=== PATIENT | female | born 2000 | race Caucasian/White ===

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

== ENCOUNTER 2021-07-28 10:25 | Emergency (ER) | payer MEDICAID ==
[2021-07-28 11:15] VITALS: BP 106/55; PULSE 96
--- NOTE | 2021-07-28 12:36 | EDM.PDOC ---
ED HPI GENERAL MEDICAL PROBLEM - General Chief Complaint: General Stated Complaint: CHEST PAIN Time Seen by Provider: 07/28/21 11:44 Source of Information: Reports: Patient, RN Notes Reviewed - History of Present Illness INITIAL COMMENTS - FREE TEXT/NARRATIVE: 20 yr old female had a near syncope episode this morning a couple of hrs ago. Became very lightheaded, felt like she was about to pass out. Feels better now. No chest pain or difficulty breathing. No vomiting or diarrhea. Middle Chest Pain Score (Numeric/FACES): 8 - Related Data Allergies Allergy/AdvReac Type Severity Reaction Status Date / Time tobacco Allergy Severe Difficulty Uncoded 07/28/21 11:15 Breathing Home Meds: Home Meds . 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 Musculoskeletal History: Reports: Other (See Below) Other Musculoskeletal History: coccyx injury Neurological History: Reports: Concussion Psychiatric History: Reports: ADHD, Depression Endocrine/Metabolic History: Reports: Obesity/BMI 30+ Hematologic History: Reports: None Immunologic History: Reports: None Oncologic (Cancer) History: Reports: None Dermatologic History: Reports: None - Infectious Disease History Infectious Disease History: Reports: None - Past Surgical History HEENT Surgical History: Reports: Adenoidectomy, Myringotomy w Tube(s), Tonsillectomy Social & Family History - Family History Family Medical History: No Pertinent Family History - Tobacco Use Tobacco Use Status *Q: Never Tobacco User - Caffeine Use Caffeine Use: Reports: Energy Drinks, Soda - Recreational Drug Use Recreational Drug Use: No - Living Situation & Occupation Living situation: Reports: with Family Occupation: Student (10th grade) ED ROS GENERAL - Review of Systems Review Of Systems: See Below Constitutional: Denies: Fever, Chills, Diaphoresis HEENT: Reports: No Symptoms Respiratory: Denies: Shortness of Breath Cardiovascular: Denies: Chest Pain GI/Abdominal: Denies: Abdominal Pain, Diarrhea, Nausea, Vomiting Musculoskeletal: Reports: No Symptoms Skin: Reports: Other (abrasion R forearm from fall last evening) Neurological: Reports: No Symptoms ED EXAM, GENERAL - Physical Exam Exam: See Below General Appearance: Alert, No Apparent Distress Throat/Mouth: Other (mouth mildly dry) Neck: Supple Respiratory/Chest: No Respiratory Distress, Lungs Clear, Normal Breath Sounds Cardiovascular: Regular Rate, Rhythm GI/Abdominal: Soft, Non-Tender. No: Guarding Back Exam: No: CVA Tenderness (L), CVA Tenderness (R) Neurological: Alert, Oriented, No Motor/Sensory Deficits Skin Exam: Warm, Dry, Normal Color Course - Vital Signs Last Recorded V/S: Last Vital Signs Temp 97.9 F 07/28/21 11:12 Pulse 96 07/28/21 11:12 Resp 18 07/28/21 11:12 BP 106/55 L 07/28/21 11:12 Pulse Ox 100 07/28/21 11:12 - Orders/Labs/Meds Labs: Laboratory Tests 07/28/21 07/28/21 Range/Units 12:22 12:22 WBC 6.13 (3.98-10.04) K/mm3 RBC 4.16 (3.98-5.22) M/mm3 Hgb 12.4 D (11.2-15.7) gm/dl Hct 36.7 (34.1-44.9) % MCV 88.2 (79.4-94.8) fl MCH 29.8 (25.6-32.2) pg MCHC 33.8 (32.2-35.5) g/dl RDW Std Deviation 38.5 (36.4-46.3) fL Plt Count 320 D (182-369) K/mm3 MPV 10.1 (9.4-12.3) fl Neut % (Auto) 87.2 H (34.0-71.1) % Lymph % (Auto) 3.1 L (19.3-51.7) % [place] % (Auto) 9.3 (4.7-12.5) % Eos % (Auto) 0.2 L (0.7-5.8) Baso % (Auto) 0.0 L (0.1-1.2) % Neut # (Auto) 5.35 (1.56-6.13) K/mm3 Lymph # (Auto) 0.19 L (1.18-3.74) K/mm3 [place] # (Auto) 0.57 H (0.24-0.36) K/mm3 Eos # (Auto) 0.01 L (0.04-0.36) K/mm3 Baso # (Auto) 0.00 L (0.01-0.08) K/mm3 Sodium 140 (136-145) mEq/L Potassium 3.4 L (3.5-5.1) mEq/L Chloride 105 (98-107) mEq/L Carbon Dioxide 20 L (21-32) mEq/L Anion Gap 18.4 H (5-15) BUN 5 L (7-18) mg/dL Creatinine 0.6 (0.55-1.02) mg/dL Est Cr Clr Drug Dosing 113.80 mL/min Estimated GFR (MDRD) > 60 (>60) mL/min BUN/Creatinine Ratio 8.3 L (14-18) Glucose 98 (70-99) mg/dL Calcium 8.7 (8.5-10.1) mg/dL Total Bilirubin 0.4 (0.2-1.0) mg/dL AST 16 (15-37) U/L ALT 21 (14-59) U/L Alkaline Phosphatase 52 (46-116) U/L Total Protein 7.3 (6.4-8.2) g/dl Albumin 4.0 (3.4-5.0) g/dl Globulin 3.3 gm/dL Albumin/Globulin Ratio 1.2 (1-2) - Re-Assessments/Exams Free Text/Narrative Re-Assessment/Exam: 07/28/21 14:01 Labs do show some dehydration with increased anion gap, mildly low C02. She has been drinking some water while awaiting lab work, no vomiting or diarrhea so she should be able to do oral rehydration. Departure - Departure Time of Disposition: 13:35 Disposition: Home, Self-Care 01 Condition: Fair Clinical Impression: Near syncope, Dehydration - Discharge Information Referrals: Desiree Garcia MD [Primary Care Provider] - Forms: ED Department Discharge Additional Instructions: Your labs show that you were somewhat dehydrated this morning which puts you at higher risk of dizziness and passing out. Rest. Avoid heat exposure today and tomorrow. Alternate powerade and water today and tomorrow. Follow up clinic as needed. Return to ED as needed if symptoms worsening in any way. Sepsis Event Note (ED) - Evaluation Sepsis Screening Result: No Definite Risk - Focused Exam Vital Signs: Vital Signs Temp Pulse Resp BP Pulse Ox 07/28/21 11:12 97.9 F 96 18 106/55 L 100
== END 2021-07-28 14:20 | disposition home or self-care (01) ==
LOC: JD.ED 10:25
DX: E86.0 Dehydration (principal); E66.9 Obesity, unspecified; Z68.32 Body mass index [BMI] 32.0-32.9, adult; Z91.048 Other nonmedicinal substance allergy status
CPT/HCPCS: 36415; 80053; 85025; 99284

== ENCOUNTER 2022-02-08 16:44 | Emergency (ER) | payer SELFPAY ==
[2022-02-08 17:12] VITALS: BP 104/85; PULSE 91
== END 2022-02-08 17:48 | disposition home or self-care (01) ==
LOC: JD.ED 16:44
DX: Z48.00 Encounter for change or removal of nonsurgical wound dressing (principal); E66.9 Obesity, unspecified; Z91.048 Other nonmedicinal substance allergy status; Z68.31 Body mass index [BMI] 31.0-31.9, adult
CPT/HCPCS: 99282

== ENCOUNTER 2022-04-12 22:43 | Emergency (ER) | payer MEDICAID ==
[2022-04-12 23:34] VITALS: BP 112/69; PULSE 89
[2022-04-12] MEDS ORDERED: Ondansetron 4 MG/2 ML SDV IVPUSH ONE (23:54)
[2022-04-12] MEDS ORDERED: Sodium Chloride 0.9% 1,000 ML IV ONE (23:54)
== END 2022-04-13 01:56 | disposition home or self-care (01) ==
LOC: JD.ED 22:43
DX: R11.2 Nausea with vomiting, unspecified (principal); Z91.048 Other nonmedicinal substance allergy status
CPT/HCPCS: 36415; 80053; 83735; 85025; 96361; 96374; 99284; J2405; J7030; 99283

== ENCOUNTER 2022-09-11 19:39 | Emergency (ER) | payer MEDICAID ==
[2022-09-11] MEDS ORDERED: Lactated Ringers 1,000 ML IV ONE (20:33)
[2022-09-11] MEDS ORDERED: Ondansetron 4 MG/2 ML SDV IVPUSH ONE (20:33)
[2022-09-11 23:33] VITALS: BP 121/71; PULSE 103
== END 2022-09-11 23:10 | disposition home or self-care (01) ==
LOC: JD.ED 19:39
DX: R11.2 Nausea with vomiting, unspecified (principal); Z91.018 Allergy to other foods
CPT/HCPCS: 36415; 80053; 83690; 84703; 85025; 96361; 96374; 99284; J2405; J7120

== ENCOUNTER 2023-09-24 00:57 | Emergency (ER) | payer MEDICAID ==
[2023-09-24] MEDS ORDERED: Sodium Chloride 0.9% 10 ML Syringe FLUSH PRN (01:23)
[2023-09-24] MEDS ORDERED: Ondansetron 4 MG/2 ML SDV IVPUSH ONE (01:23)
[2023-09-24] MEDS ORDERED: Sodium Chloride 0.9% 1,000 ML IV STA (01:23)
[2023-09-24 01:45] LABS: BASOPHILS PERCENT AUTO 0.3 % (0.0-1.0); EOSINOPHILS ABSOLUTE AUTO 0.1 K/mm3 (0.0-0.4); EOSINOPHILS PERCENT AUTO 0.8 % (0.0-6.0); HEMATOCRIT 43.5 % (37.0-47.0); HEMOGLOBIN 14.4 gm/dl (12.0-16.0); IMMATURE GRAN ABSOLUTE AUTO 0.04 K/mm3 (0.00-0.05); IMMATURE GRAN PERCENT AUTO 0.4 % (0.0-0.4); LYMPHOCYTES ABSOLUTE AUTO 2.5 K/mm3 (1.0-4.8); LYMPHOCYTES PERCENT AUTO 26.3 % (24.0-44.0); MEAN CORPUSCULAR HEMOGLOBIN 29.4 pg (28.0-32.0); MEAN CORPUSCULAR HGB CONC 33.1 g/dl (32.0-36.0); MEAN CORPUSCULAR VOLUME 88.8 fl (83.0-99.0); MEAN PLATELET VOLUME 9.2 fl (9.4-12.3); MONOCYTES ABSOLUTE AUTO 0.8 K/mm3 (0.0-0.8); MONOCYTES PERCENT AUTO 8.2 % (0.0-8.0); NEUTROPHILS ABSOLUTE AUTO 6.1 K/mm3 (1.8-7.7); PLATELET COUNT,PLT 399 K/mm3 (150-400); WHITE BLOOD CELL COUNT,WBC 9.54 K/mm3 (3.9-11.3)
[2023-09-24 01:47] LABS: APPEARANCE,URINE SLT CLOUDY (Clear); BILIRUBIN,URINE NEGATIVE (Negative); COLOR,URINE YELLOW (Yellow); GLUCOSE,URINE NEGATIVE (Negative); KETONES,URINE NEGATIVE (Negative); LEUKOCYTE ESTERASE,URINE NEGATIVE (Negative); NITRITE,URINE NEGATIVE (Negative); OCCULT BLOOD,URINE TRACE-LYSED (Negative); PH,URINE 5.5 (5.0-8.0); PROTEIN,URINE NEGATIVE (Negative); UROBILINOGEN,URINE 0.2 (0.2-1.0)
[2023-09-24 01:57] LABS: BACTERIA,URINE FEW /hpf (FEW); CALCIUM OXALATE CRYSTALS,URINE MANY; MUCUS,URINE MODERATE /hpf (FEW); RBC,URINE 0-5 /hpf (0-5); SQUAMOUS EPITHELIAL CELLS,UR 0-5 /hpf (0-5); WBC,URINE 0-5 /hpf (0-5)
[2023-09-24 02:04] LABS: ALBUMIN 4.1 g/dl (3.4-5.0); ANION GAP 14.8 (5-15); BILIRUBIN TOTAL 0.2 mg/dL (0.2-1.0); CALCIUM 9.4 mg/dL (8.5-10.1); CREATININE 0.8 mg/dL (0.55-1.02); EST CRCL DRUG DOSING (CG) 87.24 mL/min; POTASSIUM,K 3.8 mEq/L (3.5-5.1); PROTEIN TOTAL,TP 8.1 g/dl (6.4-8.2)
[2023-09-24 02:58] VITALS: BP 123/75; PULSE 80
== END 2023-09-24 02:38 | disposition home or self-care (01) ==
LOC: JD.ED 00:57
DX: A08.4 Viral intestinal infection, unspecified (principal); E66.9 Obesity, unspecified; Z68.36 Body mass index [BMI] 36.0-36.9, adult; Z86.16 Personal history of COVID-19; Z91.048 Other nonmedicinal substance allergy status
CPT/HCPCS: 36415; 80053; 81001; 83690; 84703; 85025; 96361; 96374; 99284; J2405; J3490; J7030

== ENCOUNTER 2023-10-04 03:06 | Emergency (ER) | payer MEDICAID ==
[2023-10-04 03:17] VITALS: BP 119/66; PULSE 79
[2023-10-04] MEDS ORDERED: Sodium Chloride 0.9% 10 ML Syringe FLUSH PRN (03:17)
[2023-10-04 03:32] LABS: APPEARANCE,URINE CLOUDY (Clear); BILIRUBIN,URINE NEGATIVE (Negative); COLOR,URINE YELLOW (Yellow); GLUCOSE,URINE NEGATIVE (Negative); KETONES,URINE NEGATIVE (Negative); LEUKOCYTE ESTERASE,URINE NEGATIVE (Negative); NITRITE,URINE NEGATIVE (Negative); OCCULT BLOOD,URINE 3+ (Negative); PROTEIN,URINE TRACE (Negative); UROBILINOGEN,URINE 0.2 (0.2-1.0)
[2023-10-04 03:47] LABS: BACTERIA,URINE FEW /hpf (FEW); EPITHELIAL CELLS,URINE 0-5 /hpf (0-5); MUCUS,URINE FEW /hpf (FEW); RBC,URINE 75-100 /hpf (0-5); WBC,URINE 0-5 /hpf (0-5)
[2023-10-04 03:48] LABS: BASOPHILS PERCENT AUTO 0.4 % (0.0-1.0); EOSINOPHILS ABSOLUTE AUTO 0.1 K/mm3 (0.0-0.4); HEMATOCRIT 39.6 % (37.0-47.0); HEMOGLOBIN 13.5 gm/dl (12.0-16.0); IMMATURE GRAN ABSOLUTE AUTO 0.01 K/mm3 (0.00-0.05); IMMATURE GRAN PERCENT AUTO 0.2 % (0.0-0.4); LYMPHOCYTES ABSOLUTE AUTO 1.5 K/mm3 (1.0-4.8); LYMPHOCYTES PERCENT AUTO 29.1 % (24.0-44.0); MEAN CORPUSCULAR HEMOGLOBIN 30.2 pg (28.0-32.0); MEAN CORPUSCULAR HGB CONC 34.1 g/dl (32.0-36.0); MEAN CORPUSCULAR VOLUME 88.6 fl (83.0-99.0); MEAN PLATELET VOLUME 9.1 fl (9.4-12.3); MONOCYTES ABSOLUTE AUTO 0.4 K/mm3 (0.0-0.8); MONOCYTES PERCENT AUTO 8.8 % (0.0-8.0); NEUTROPHILS PERCENT AUTO 60.5 % (41.0-71.0); PLATELET COUNT,PLT 404 K/mm3 (150-400); RED BLOOD CELL COUNT 4.47 M/mm3 (4.10-5.30); WHITE BLOOD CELL COUNT,WBC 5.01 K/mm3 (3.9-11.3)
== END 2023-10-04 04:52 | disposition home or self-care (01) ==
LOC: JD.ED 03:06
DX: N92.0 Excessive and frequent menstruation with regular cycle (principal); E66.9 Obesity, unspecified; Z86.16 Personal history of COVID-19; Z68.37 Body mass index [BMI] 37.0-37.9, adult; Z91.09 Other allergy status, other than to drugs and biological substances
CPT/HCPCS: 36415; 81001; 84702; 85025; 99284; J3490; 99282

== ENCOUNTER 2024-03-05 17:49 | Emergency (ER) | payer SELFPAY ==
[2024-03-05 19:29] LABS: APPEARANCE,URINE CLEAR (Clear); BILIRUBIN,URINE NEGATIVE (Negative); COLOR,URINE LIGHT YELLOW (Yellow); GLUCOSE,URINE NEGATIVE (Negative); KETONES,URINE NEGATIVE (Negative); LEUKOCYTE ESTERASE,URINE NEGATIVE (Negative); NITRITE,URINE NEGATIVE (Negative); OCCULT BLOOD,URINE TRACE-LYSED (Negative); PROTEIN,URINE NEGATIVE (Negative); UROBILINOGEN,URINE 0.2 (0.2-1.0)
[2024-03-05 19:50] LABS: BACTERIA,URINE FEW /hpf (FEW); MUCUS,URINE FEW /hpf (FEW); RBC,URINE 0-5 /hpf (0-5); SQUAMOUS EPITHELIAL CELLS,UR 0-5 /hpf (0-5); WBC,URINE 0-5 /hpf (0-5)
[2024-03-05 20:46] VITALS: BP 108/71; PULSE 71
[2024-03-05 20:59] LABS: C. TRACHOMATIS BY PCR NOT DETECTED; N. GONORRHOEAE BY PCR NOT DETECTED
== END 2024-03-05 20:42 | disposition home or self-care (01) ==
LOC: JD.ED 17:49
DX: N83.202 Unspecified ovarian cyst, left side (principal); N92.1 Excessive and frequent menstruation with irregular cycle; Z91.048 Other nonmedicinal substance allergy status; Z86.16 Personal history of COVID-19; Z90.49 Acquired absence of other specified parts of digestive tract
CPT/HCPCS: 0352U; 76830; 81001; 81025; 87491; 87591; 99284

== ENCOUNTER 2024-03-13 00:50 | Emergency (ER) | payer SELFPAY | END 2024-03-13 02:40 | disposition left against medical advice (07) | LOC: JD.ED 00:50 | DX: Z53.21 Procedure and treatment not carried out due to patient leaving prior to being seen by health care provider (principal) ==

== ENCOUNTER 2024-07-15 22:24 | Emergency (ER) | payer SELFPAY ==
[2024-07-15 22:37] VITALS: BP 137/89; PULSE 91
[2024-07-15] MEDS: Cefdinir 300 MG Cap PO ONE (23:14)
== END 2024-07-15 23:15 | disposition home or self-care (01) ==
LOC: JD.ED 22:24
DX: H66.002 Acute suppurative otitis media without spontaneous rupture of ear drum, left ear (principal); E66.9 Obesity, unspecified; Z68.37 Body mass index [BMI] 37.0-37.9, adult; Z90.49 Acquired absence of other specified parts of digestive tract; Z86.16 Personal history of COVID-19; Z91.048 Other nonmedicinal substance allergy status
CPT/HCPCS: 99283; A9270

== ENCOUNTER 2024-09-17 22:37 | Emergency (ER) | payer SELFPAY ==
[2024-09-17 22:43] VITALS: BP 131/78; PULSE 108
[2024-09-17] MEDS ORDERED: Sodium Chloride 0.9% 10 ML Syringe FLUSH PRN (23:34)
[2024-09-17] MEDS: Sodium Chloride 0.9% 1,000 ML IV ONE (23:44)
[2024-09-18 00:04] LABS: HEMATOCRIT 41.1 % (37.0-47.0); HEMOGLOBIN 13.9 gm/dl (12.0-16.0); MEAN CORPUSCULAR VOLUME 87.4 fl (83.0-99.0); WHITE BLOOD CELL COUNT,WBC 11.27 K/mm3 (3.9-11.3)
[2024-09-18 00:05] LABS: BASOPHILS PERCENT AUTO 0.1 % (0.0-1.0); EOSINOPHILS ABSOLUTE AUTO 0.1 K/mm3 (0.0-0.4); EOSINOPHILS PERCENT AUTO 0.4 % (0.0-6.0); IMMATURE GRAN ABSOLUTE AUTO 0.03 K/mm3 (0.00-0.05); IMMATURE GRAN PERCENT AUTO 0.3 % (0.0-0.4); LYMPHOCYTES ABSOLUTE AUTO 0.6 K/mm3 (1.0-4.8); LYMPHOCYTES PERCENT AUTO 4.9 % (24.0-44.0); MEAN CORPUSCULAR HEMOGLOBIN 29.6 pg (28.0-32.0); MEAN CORPUSCULAR HGB CONC 33.8 g/dl (32.0-36.0); MEAN PLATELET VOLUME 9.3 fl (9.4-12.3); MONOCYTES ABSOLUTE AUTO 0.4 K/mm3 (0.0-0.8); MONOCYTES PERCENT AUTO 3.3 % (0.0-8.0); NEUTROPHILS ABSOLUTE AUTO 10.3 K/mm3 (1.8-7.7); PLATELET COUNT,PLT 408 K/mm3 (150-400)
[2024-09-18 00:17] LABS: A/G RATIO 1.1 (1-2); ANION GAP 16.6 (5-15); BILIRUBIN TOTAL 0.6 mg/dL (0.2-1.0); BUN/CREATININE RATIO 14.3 (14-18); CALCIUM 9.2 mg/dL (8.5-10.1); CREATININE 0.7 mg/dL (0.55-1.02); EST CRCL DRUG DOSING (CG) 95.13 mL/min; MAGNESIUM 1.8 mg/dL (1.8-2.4); POTASSIUM,K 3.6 mEq/L (3.5-5.1); PROTEIN TOTAL,TP 7.6 g/dl (6.4-8.2)
[2024-09-18 00:31] LABS: SLIDE REVIEW ABNORMAL SMEAR
== END 2024-09-18 02:24 | disposition home or self-care (01) ==
LOC: JD.ED 22:37
DX: R11.2 Nausea with vomiting, unspecified (principal); R19.7 Diarrhea, unspecified; E66.9 Obesity, unspecified; Z68.38 Body mass index [BMI] 38.0-38.9, adult; Z79.899 Other long term (current) drug therapy; Z86.16 Personal history of COVID-19; Z91.048 Other nonmedicinal substance allergy status
CPT/HCPCS: 36415; 80053; 83735; 84703; 85025; 96360; 99284; J7030; 99283

== ENCOUNTER 2025-03-08 00:08 | Emergency (ER) | payer SELFPAY ==
[2025-03-08] MEDS ORDERED: Sodium Chloride 0.9% 10 ML Syringe FLUSH PRN (00:49)
[2025-03-08 01:38] LABS: BASOPHILS PERCENT AUTO 0.2 % (0.0-1.0); EOSINOPHILS ABSOLUTE AUTO 0.1 K/mm3 (0.0-0.4); EOSINOPHILS PERCENT AUTO 0.7 % (0.0-6.0); HEMATOCRIT 38.6 % (37.0-47.0); HEMOGLOBIN 12.7 gm/dl (12.0-16.0); IMMATURE GRAN ABSOLUTE AUTO 0.02 K/mm3 (0.00-0.05); IMMATURE GRAN PERCENT AUTO 0.2 % (0.0-0.4); LYMPHOCYTES ABSOLUTE AUTO 2.2 K/mm3 (1.0-4.8); LYMPHOCYTES PERCENT AUTO 24.4 % (24.0-44.0); MEAN CORPUSCULAR HEMOGLOBIN 29.2 pg (28.0-32.0); MEAN CORPUSCULAR HGB CONC 32.9 g/dl (32.0-36.0); MEAN CORPUSCULAR VOLUME 88.7 fl (83.0-99.0); MEAN PLATELET VOLUME 9.7 fl (9.4-12.3); MONOCYTES ABSOLUTE AUTO 0.6 K/mm3 (0.0-0.8); MONOCYTES PERCENT AUTO 6.6 % (0.0-8.0); NEUTROPHILS ABSOLUTE AUTO 6.1 K/mm3 (1.8-7.7); NEUTROPHILS PERCENT AUTO 67.9 % (41.0-71.0); PLATELET COUNT,PLT 388 K/mm3 (150-400); RED BLOOD CELL COUNT 4.35 M/mm3 (4.10-5.30); WHITE BLOOD CELL COUNT,WBC 8.95 K/mm3 (3.9-11.3)
[2025-03-08 02:04] LABS: ALBUMIN 3.6 g/dl (3.4-5.0); ANION GAP 11.8 (5-15); BILIRUBIN TOTAL 0.2 mg/dL (0.2-1.0); BUN/CREATININE RATIO 12.5 (14-18); CALCIUM 9.4 mg/dL (8.5-10.1); CREATININE 0.8 mg/dL (0.55-1.02); EST CRCL DRUG DOSING (CG) 82.53 mL/min; POTASSIUM,K 3.8 mEq/L (3.5-5.1); PROTEIN TOTAL,TP 7.3 g/dl (6.4-8.2)
[2025-03-08 03:27] LABS: C. TRACHOMATIS BY PCR NOT DETECTED; N. GONORRHOEAE BY PCR NOT DETECTED
[2025-03-08] MEDS: Fluconazole 150 MG Tab PO ONE (03:39)
[2025-03-08 03:43] VITALS: BP 112/81; PULSE 81
== END 2025-03-08 03:42 | disposition home or self-care (01) ==
LOC: JD.ED 00:08
DX: N93.9 Abnormal uterine and vaginal bleeding, unspecified (principal); B37.9 Candidiasis, unspecified; E66.9 Obesity, unspecified; Z79.899 Other long term (current) drug therapy; Z88.8 Allergy status to other drugs, medicaments and biological substances; Z86.16 Personal history of COVID-19; Z90.49 Acquired absence of other specified parts of digestive tract; Z68.39 Body mass index [BMI] 39.0-39.9, adult
CPT/HCPCS: 36415; 76817; 80053; 81515; 83690; 84703; 85025; 87491; 87591; 99284; A9270; 99283